=== PATIENT | female | born 1945 | race Caucasian/White ===

== ENCOUNTER 2025-06-11 13:38 | Emergency (ER) | payer MEDICARE, OTHER, SELFPAY ==
[2025-06-11 13:39] VITALS: BP 144/70; PULSE 71; RESP 16; TEMP 36.6; O2SAT 98; BMI 27.6
--- NOTE | 2025-06-11 14:34 | EKG12_ITS ---
Test Reason : ARM PAIN Blood Pressure : */* mmHG Vent. Rate : 69 BPM Atrial Rate : 69 BPM P-R Int : 166 ms QRS Dur : 70 ms QT Int : 386 ms P-R-T Axes : 71 33 64 degrees QTcB Int : 413 ms Normal sinus rhythm Nonspecific ST abnormality Abnormal ECG Confirmed by KADE MCCORMACK, MICHAEL ([id number]), editor & co founder JOHN CHATMAN ([id number]) on 06/14/2025 6:48:07 AM Referred By: Confirmed By: MICHAEL BRAUN MD
--- NOTE | 2025-06-11 14:37 | EDS_ITS ---
HPI History of Present Illness HPI Narrative: 80-year-old female sitting upright in bed vital signs stable afebrile. Complaining of left shoulder and upper extremity pain. at bedside. Chief Complaint: Upper Extremity Injury Informant: patient and spouse/S.O. Occured/Mechanism Mechanism/Context: Yes injury and Yes blunt trauma Onset/Context/Timing Onset: Today Context: Sudden Onset Timing: Continuous Quality of Pain: Sharp Current Severity: Moderate Maximum Severity: Moderate Associated Symptoms Associated Symptoms: Negative for Parasthesia, Weakness or Loss of Funtion Narrative Narrative: 80-year-old female history of prior TIAs and CVAs on aspirin. Says that her and her ate out today for lunch as they were walking in the car she fell injuring her left shoulder and upper extremity. She also hit her face and teeth caused a laceration of her lower lip on the inside. She denies any LOC other than baby aspirin she is on no other blood thinners. Denies any other head injury or headache. No neck pain or back pain. She also has an abrasion on her left knee. Recently denies any illness. Prior similar symptoms: No Recent Illness/Hospitalization: No PFSH PFSH Medical History no medical history Home Medications ?Medication ?Instructions ?Recorded ?Last Taken ?Type oxycodone-acetaminophen 5 mg-325 1 tab PO Q4H PRN pain 7 days #20 06/11/25 Unknown Rx mg tablet (Percocet) tabs Allergy/AdvReac Type Severity Reaction Status Date / Time Sulfa (Sulfonamide Allergy Unknown NEEDS Verified 06/11/25 13:40 Antibiotics) FOLLOW-UP Family History no significant family his Surgical History no surgical history Social History Smoking Status: Former smoker ROS ROS ED ROS Narrative Patient denies any recent illness. Constitutional Constitutional ED: Denies chills or fever(s) Eyes Eyes: Denies blurry vision ENT ENT ED: Denies ear pain Cardiovascular Cardiovascular: Denies chest pain Respiratory/Chest Respiratory/Chest: Denies cough or dyspnea Gastrointestinal Gastrointestinal: Denies abdominal pain Genitourinary Genitourinary ED: Denies dysuria Musculoskeletal Musculoskeletal: Denies back pain Integumentary Denies abscess Neurologic Neurologic: Denies headache(s) Psychiatric Psychiatric: Denies anxiety Endocrine Endocrinology: Denies cold intolerance Hematologic/Lymphatic Hematologic/Lymphatic: Denies easy bleeding, easy bruising or lymphadenopathy Allergic/Immunologic Allergic/Immunologic ED: Denies mouth swelling, tongue swelling or urticaria EXAM Physical Exam Narrative Exam Narrative: 80-year-old female vital signs are stable afebrile sitting upright in bed. at bedside. H EENT exam pupils are react light. Face is nontender other than her lower lip in the midline there is about a 1 inch laceration at the flap. Dentition intact she does not think any of them are broken or chipped. She can open close her jaw with any difficulty. Tongue is unremarkable. Moist mucous membranes. Face and scalp otherwise nontender without hematoma. C-spine is nontender. Trachea midline. Lungs clear to auscultation bilaterally. Heart regular rhythm rate about 70 no murmur. Chest wall and ribs are unremarkable except right lateral lower rib cage is mildly tender. There is no ecchymosis or bruising. No subcu air or crepitance. Abdomen is soft, nontender, nondistended, normal bowel sounds without peritoneal signs. Pelvic girdle intact. She has a superficial laceration on her left knee but has full flexion extension of both knees. Hips are nontender no deformity. No shortening or internal rotation. Patient is moving all 4 extremities she is holding the left still because of pain in her elbow up to her shoulder. She is tenderness to the shoulder and elbow. There is no deformity. 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 Right upper and lower extremities are unremarkable other than the superficial laceration of the left knee. Neurologically she is awake alert. Answering questions following commands. Const Vital Signs: 06/11/25 13:39 Temperature 97.8 F Temperature Source Temporal Pulse Rate 71 Respiratory Rate 16 Blood Pressure 144/70 H Blood Pressure Mean 94 Pulse Ox 98 Oxygen Delivery Method Room Air MDM MDM MDM Narrative Medical decision making narrative: 80-year-old female fall injury to her left shoulder and right ribs. X-rays of I will be obtained. To be morphine for pain. She does have trace edema in her lower extremities basilio get screening labs. An EKG. She will also need her tetanus updated and suture repair of the lower lip. Repeat exam patient is doing well. They cleaned and dressed her left knee superficial laceration. I discussed with her her test results and her x-rays. We went over the x-ray of her shoulder. She has a comminuted humeral head fracture. Should be placed in a sling. Written for pain medications. They live in [facility] and she will follow-up with orthopedics there. Will get her up and ambulate her before she is discharged. I am also going to place to absorbable sutures in her lower lip laceration. History & Record Review Discussion w/independent historian: Patient and Family Additional record(s) reviewed:: No prior records Lab Data Attestation: I reviewed the patient's lab results. Lab results narrative: CBC is unremarkable. Normal white count of 7. Normal H&H. Chemistries show a normal gap of 12 BUN 22 and creatinine 0.9. Glucose 162. Liver enzymes unremarkable. Radiography Chest X-Ray - ED: 2 View, Read by ED Physician, Read by Radiologist, Heart, Lungs, Mediastinum, Chronic Changes and - (Left humeral head fracture. No obvious rib fractures. No pneumothorax. Normal cardiac silhouette.) Diagnostic Testing: Chest x-ray, 2 views, interpreted by myself and the radiologist. Shows normal cardiac silhouette. Normal lung evans. No pneumothorax. No obvious rib fractures. Left shoulder x-ray, , 4 views, interpreted by myself and the radiologist shows left femoral head comminuted fracture. Left elbow x-ray, 3 views, interpreted by myself and radiologist shows no acute fracture or dislocation. Discharge Plan Triage Chief Complaint: Upper Extremity Injury ED Provider: Sudeep Marks Dx/Rx/DC Orders Clinical Impression: Fall, Closed fracture of head of left humerus, Laceration of lower lip, Contusion of elbow, Contusion of rib on right side, Contusion of knee, left Instructions: ED Laceration, All Closures, ED Fracture, Shoulder, ED Rib Contusion or Minor Fracture Prescriptions: New oxycodone-acetaminophen [Percocet] 5-325 mg tablet 1 tab PO Q4H PRN (Reason: pain) 7 Days Qty: 20 0RF Primary Care Provider: IRVING CAPONE Referrals: Hira Nunes MD [Med Staff - Active Staff, Orthopedics] - 1 Week Care Physician,No Primary [Non-Staff, Medical] Activity Restrictions/Additional Instructions: You have a fracture or broken left humeral head your left shoulder. These are typically not treated surgically. Follow-up with a local orthopedic surgeon in your hometown. Ice to your shoulder and your lip and all sore areas. On your chest x-ray there is no obvious broken rib. If it is not displaced sometimes you do not see rib fractures on x-ray. Use a pillow to brace your chest wall. Percocet for pain. Plenty of fluids, fruits and vegetables, fiber and stool softener as needed to prevent constipation. Take it with food on your stomach. Print Language: Icelandic Disposition Disposition: Home, Self Care
[2025-06-11] MEDS: Lidocaine 1% (20 ml mdv) 20 ML Vial 10 ML INFILT (14:49)
[2025-06-11 14:58] LABS: Hematocrit 41.2 % (37-47); Hemoglobin 13.6 g/dL (12.0-15.0); Immature Granulocytes Count 0.040 X10^3/uL (0.0-0.0); Mean Corp Hgb Conc 33.0 g/dL (32-36); Mean Corpuscular Volume 92.4 fL (81-99); Mean Platelet Vol. 10.0 fl (6.2-12.0); NRBC Flagged by Analyzer 0 % (0-5); Platelet Count 262 K/mm3 (150-450); RBC Distribution Width CV 14.2 % (11.6-14.6); RBC Distribution Width SD 48.5 fl (35.1-43.9); Red Blood Count 4.46 M/mm3 (4.2-5.4); White Blood Count 7.4 K/mm3 (4.4-11.0)
--- NOTE | 2025-06-11 15:15 | RAD_ITS ---
PROCEDURE: CHEST PA AND LATERAL 06/11/2025 REASON FOR EXAM: FALL RIGHT RIB CAGE TENDERNESS. TECHNIQUE: Procedure Code: RADCXR Modality: DX Procedure: CHEST PA AND LATERAL COMPARISON: None FINDINGS: Hardware: None Heart: The heart size is normal. Mediastinum: The mediastinal contour is unremarkable. Lungs: The lungs are clear. Bones: The bones are unremarkable. Comminuted fracture of the left humeral head. RAD/Chest PA and Lateral IMPRESSION: Comminuted fracture of the left humeral head. Tortuous aorta. Reading Location: [id number]
--- NOTE | 2025-06-11 15:15 | RAD_ITS ---
PROCEDURE: ELBOW MIN 3 VIEWS 06/11/2025 REASON FOR EXAM: FALL LEFT ELBOW PAIN TECHNIQUE: Procedure Code: RADEL Modality: DX Procedure: ELBOW 3 VIEWS Laterality: Left COMPARISON: None. RAD/Elbow min 3 Views IMPRESSION: Soft tissue swelling is seen of the posterior proximal forearm. No radiopaque foreign body is seen. No left elbow joint effusion is seen. Chronic appearing medial and lateral epicondylar enthesophytes are noted. No fracture or dislocation is evident. If clinical concern persists, short-term follow-up imaging may be obtained to r ule out a currently occult fracture. Reading Location: [id number]
--- NOTE | 2025-06-11 15:15 | RAD_ITS ---
PROCEDURE: SHOULDER MIN 2 VIEWS 06/11/2025 REASON FOR EXAM: FALL LEFT SHOULDER PAIN TECHNIQUE: Procedure Code: RADSH Modality: DX Procedure: SHOULDER MIN 2 VIEWS Laterality: Left COMPARISON: None. RAD/Shoulder min 2 Views IMPRESSION: A markedly comminuted and somewhat impacted FRACTURE of the left humeral head a nd neck is seen, most prominent laterally, and with mild anterior displacement and mild degree of posterior angulation. Moderate left acromioclavicular joint degenerative changes are seen. The visualized left hemithorax shows no acute process. Reading Location: [id number]
[2025-06-11 15:34] LABS: AST(SGOT) 23 U/L (<=31); Alanine Aminotransfer ALT/SGPT 18 U/L (<=34); Albumin, Serum 4.5 g/dL (3.4-4.8); Alkaline Phosphatase 61 U/L (35-104); Anion Gap 12 (5-15); BUN 22 mg/dL (4-19); BUN/Creat Ratio 23.3 RATIO (10-20); Calcium,Total 9.6 mg/dL (7.6-11.0); Carbon Dioxide 26.3 mmol/L (21.0-32.0); Chloride 96 mmol/L (98-108); Estimated Creatinine Clearance 42.38 ml/min (50-250); Globulin 3.1 g/dL (2.2-4.2); Glucose 162 mg/dL (70-99); Potassium 4.0 mmol/L (3.3-5.1)
[2025-06-11 16:48] VITALS: BP 121/63; PULSE 56; RESP 17; O2SAT 98
[2025-06-11 16:49] VITALS: BP 121/63; PULSE 56; RESP 17; TEMP 36.6; O2SAT 98
== END 2025-06-11 17:07 | disposition home or self-care (01) ==
PROVIDERS: Emergency Provider Emergency Medicine; Visit Provider Emergency Medicine
DX: S42.292A Other displaced fracture of upper end of left humerus, initial encounter for closed fracture (principal); S01.511A Laceration without foreign body of lip, initial encounter; S81.012A Laceration without foreign body, left knee, initial encounter; S80.02XA Contusion of left knee, initial encounter; S20.211A Contusion of right front wall of thorax, initial encounter; W18.39XA Other fall on same level, initial encounter; Y93.01 Activity, walking, marching and hiking; Z79.82 Long term (current) use of aspirin; Z86.73 Personal history of transient ischemic attack (TIA), and cerebral infarction without residual deficits; Z87.891 Personal history of nicotine dependence; Z23 Encounter for immunization
CPT/HCPCS: 12011; 71046; 73030; 73080; 80053; 85025; 90471; 90715; 93005; 96374; 96375; 96376; 99285; A4216; J2405